=== PATIENT | female | born 1980 | race Caucasian/White ===

== ENCOUNTER 2017-01-25 10:09 | Inpatient (IN) | payer MEDICAID, OTHER ==
[2017-01-25] VITALS (75 sets, daily range): BP systolic 114–137; BP diastolic 62–77; PULSE 67–98; RESP 18; TEMP 97.8–98.5
[~2017-01-25] VITALS: Ht 162.6 cm; Wt 70.0 kg
--- NOTE | 2017-01-25 11:08 | PD ---
HPI Chief Complaint Leaking fluid Date Seen: Jan 25, 2017 Time Seen: 10:55 Travel History International Travel<30 Days: No Contact w/Intl Traveler<30Days: No Known Affected Area: No History of Present Illness HPI Patient is 36-year-old white female at 39 1/2 weeks, goes to see Dr. Sherman for care, presents complaining of leaking a large amount of fluid earlier today. She says it would fill a cup. She went to [facility]. Amnio sure was negative and Center out at that time said she was 3 cm dilated, here in OB ED her amnio sure is also negative and the nurse checked her cervix and said she was 4 and 60%. heart rate tracing is reactive she is not angélica at this time Weeks Gestation: 39 Para: 5 : 6 History Obstetric History Obstetric History 5 vaginal deliveries Social History Alcohol Use: No Tobacco Use: No Substance Abuse: No Review of Systems General / Constitutional: No: Fever, Weight Gain, Chills, Other Eyes: No: Diploplia, Blurred Vision, Visual changes, Pain, Photophobia HENT: No: Headaches, Vertigo, Lightheadedness Cardiovascular: No: Irregular Rhythm, Chest Pain or Discomfort, Palpitations, Tachycardia, Syncope, Varicosities, Edema, Cyanosis Respiratory: No: Cough, Short of Breath, Other Gastrointestinal: No: Nausea, Vomiting, Diarrhea Genitourinary: No: Decreased Urinary Output, Oliguria Musculoskeletal: No: Limited ROM, Weakness, Cramping, Edema, Pain Skin: No Rash, No Itching, No Dryness, No Lumps, No Change in Pigmentation, No Change in Nails, No Alopecia, No Lesions Neurologic: No: Weakness, Dizziness, Syncope, Focal Abnormalities, Coordination Problem, Headache, Slurred Speech, Seizures Psychiatric: No: Depression, Suicidal Ideations, Homicidal Ideation Endocrine: No: Heat Intolerance, Cold Intolerance, Polydipsia, Polyuria, Other Physical Exam Narrative GENERAL: Well-nourished, well-developed patient. SKIN: Warm and dry. HEAD: Normocephalic and atraumatic. EYES: No scleral icterus. No injection or drainage. ENT: No nasal drainage noted. Mucous membranes pink. Airway patent. NECK: Supple, trachea midline. No JVD. CARDIOVASCULAR: Regular rate and rhythm without murmurs, gallops, or rubs. RESPIRATORY: Breath sounds equal bilaterally. No accessory muscle use. BREASTS: Bilateral exam showed no masses , no retractions, no nipple discharge. ABDOMEN/GI: Abdomen soft, non-tender, bowel sounds present, no rebound, no guarding Gravid to [38-] weeks size Fundal Height: [37-] GENITOURINARY: External Genitalia: intact and normal in appearance , speculum exam was done- -the vulva is pretty wet and stained with minimal amount of blood that is likely from her cervical exam. Looking in the vagina there is no pooling that there is a moderate amount of old blood in the posterior fornix and in the vagina, and this would make repeating an amnio sure doing a fern any testing unreliable Cervix: [3-4-] Dilatation: [3-4] Effacement: [-] 50% Station: [-3] Presentation: [-vtx] Membranes: [intact ] with an amnio sure negative 2 I believe the patient is probably intact Uterine Contractions: [-no reg] FHT's: Category: [1-] Baseline: [-133] Reactive: [yes-] Variability: [-mod] Decels: [-none] EXTREMITIES: No cyanosis or edema. BACK: Nontender without obvious deformity. No CVA tenderness. NEUROLOGICAL: Awake and alert. Motor and sensory grossly within normal limits. Five out of 5 muscle strength in all muscle groups. Normal speech. Data Data Labs Amnio sure negative here on OB ED MDM Interpretation(s) Patient is 36-year-old white female at 39 weeks presents complaining of leakage of fluid, she had an amnio sure done at [facility] was negative. Repeat amnio sure done here in our OB ED is negative. However the patient gives a good story a lot of leakage of fluid at times and on exam the vulva is fairly with the vagina does appear washed out but there is a moderate amount of blood in the vagina and the on the vulva very likely just being checked cervix. Heart rate tracing is reactive and no contractions, cervix is 3-4 cm /50%/ -3. Patient sees Dr. Sherman for care and will blood call him and see if he has any guidelines would like to follow for her care Plan Discussed patient's case with Dr. Sherman and he agreed that if the patient wanted to stay and a get delivered that he was happy to do that, so plan to admit the patient his service and he will effect delivery as his schedule permits Diagnosis Diagnosis: Primary Impression: 39 weeks gestation of Additional Impressions: Vaginal discharge during in third trimester Spotting complicating in third trimester Condition: Stable Jelani Lorenzana II, MD Jan 25, 2017 11:08
[2017-01-25] MEDS ORDERED: SODIUM CHLORID 0.9% 500 ML INJ 500 ML IV PRN (11:15)
[2017-01-25] MEDS ORDERED: LIDOCAINE HCL 1% 50 ML VIAL INFIL PRN (11:15)
[2017-01-25] MEDS ORDERED: CITRIC ACID-SODIUM CITRATE LIQ 30 ML UDC PO SCH (11:15)
[2017-01-25] MEDS ORDERED: LACTATED RINGER'S 1000 ML INJ 1,000 ML IV PRN (11:15)
[2017-01-25] MEDS ORDERED: LACTATED RINGER'S 1000 ML INJ 1,000 ML IV SCH (11:15)
[2017-01-25] MEDS ORDERED: LIDOCAINE HCL 1% 50 ML VIAL I-DERMAL PRN (11:15)
[2017-01-25] MEDS ORDERED: MINERAL OIL 10 ML VIAL TOPICAL PRN (11:15)
--- NOTE | 2017-01-25 11:15 | HHI.HP ---
History & Physical H&P OB ED Note (Detail) Patient Name: Sam Uriarte Unit Number: [id number] Date of : 1980 Patient Status: Registered Emergency Room Attending Doctor: Jelani Lorenzana II, MD HPI HPI Chief Complaint Leaking fluid Date Seen: Jan 25, 2017 Time Seen: 10:55 Travel History International Travel<30 Days: No Contact w/Intl Traveler<30Days: No Known Affected Area: No History of Present Illness HPI Patient is 36-year-old white female at 39 1/2 weeks, goes to see Dr. Sherman for care, presents complaining of leaking a large amount of fluid earlier today. She says it would fill a cup. She went to [facility]. Amnio sure was negative and Center out at that time said she was 3 cm dilated, here in OB ED her amnio sure is also negative and the nurse checked her cervix and said she was 4 and 60%. heart rate tracing is reactive she is not angélica at this time Weeks Gestation: 39 Para: 5 : 6 History (Limited) History Obstetric History Obstetric History 5 vaginal deliveries Social History Alcohol Use: No Tobacco Use: No Substance Abuse: No Allergies-Medications Allergies-Medications ROS Review of Systems General / Constitutional: No: Fever, Weight Gain, Chills, Other Eyes: No: Diploplia, Blurred Vision, Visual changes, Pain, Photophobia HENT: No: Headaches, Vertigo, Lightheadedness Cardiovascular: No: Irregular Rhythm, Chest Pain or Discomfort, Palpitations, Tachycardia, Syncope, Varicosities, Edema, Cyanosis Respiratory: No: Cough, Short of Breath, Other Gastrointestinal: No: Nausea, Vomiting, Diarrhea Genitourinary: No: Decreased Urinary Output, Oliguria Musculoskeletal: No: Limited ROM, Weakness, Cramping, Edema, Pain Skin: No Rash, No Itching, No Dryness, No Lumps, No Change in Pigmentation, No Change in Nails, No Alopecia, No Lesions Neurologic: No: Weakness, Dizziness, Syncope, Focal Abnormalities, Coordination Problem, Headache, Slurred Speech, Seizures Psychiatric: No: Depression, Suicidal Ideations, Homicidal Ideation Endocrine: No: Heat Intolerance, Cold Intolerance, Polydipsia, Polyuria, Other Physical Exam Physical Exam Narrative GENERAL: Well-nourished, well-developed patient. SKIN: Warm and dry. HEAD: Normocephalic and atraumatic. EYES: No scleral icterus. No injection or drainage. ENT: No nasal drainage noted. Mucous membranes pink. Airway patent. NECK: Supple, trachea midline. No JVD. CARDIOVASCULAR: Regular rate and rhythm without murmurs, gallops, or rubs. RESPIRATORY: Breath sounds equal bilaterally. No accessory muscle use. BREASTS: Bilateral exam showed no masses , no retractions, no nipple discharge. ABDOMEN/GI: Abdomen soft, non-tender, bowel sounds present, no rebound, no guarding Gravid to [38-] weeks size Fundal Height: [37-] GENITOURINARY: External Genitalia: intact and normal in appearance , speculum exam was done- -the vulva is pretty wet and stained with minimal amount of blood that is likely from her cervical exam. Looking in the vagina there is no pooling that there is a moderate amount of old blood in the posterior fornix and in the vagina, and this would make repeating an amnio sure doing a fern any testing unreliable Cervix: [3-4-] Dilatation: [3-4] Effacement: [-] 50% Station: [-3] Presentation: [-vtx] Membranes: [intact ] with an amnio sure negative 2 I believe the patient is probably intact Uterine Contractions: [-no reg] FHT's: Category: [1-] Baseline: [-133] Reactive: [yes-] Variability: [-mod] Decels: [-none] EXTREMITIES: No cyanosis or edema. BACK: Nontender without obvious deformity. No CVA tenderness. NEUROLOGICAL: Awake and alert. Motor and sensory grossly within normal limits. Five out of 5 muscle strength in all muscle groups. Normal speech. Data Data Data Labs Amnio sure negative here on OB ED MDM MDM Interpretation(s) Patient is 36-year-old white female at 39 weeks presents complaining of leakage of fluid, she had an amnio sure done at [facility] was negative. Repeat amnio sure done here in our OB ED is negative. However the patient gives a good story a lot of leakage of fluid at times and on exam the vulva is fairly with the vagina does appear washed out but there is a moderate amount of blood in the vagina and the on the vulva very likely just being checked cervix. Heart rate tracing is reactive and no contractions, cervix is 3-4 cm /50%/ -3. Patient sees Dr. Sherman for care and will blood call him and see if he has any guidelines would like to follow for her care Plan Discussed patient's case with Dr. Sherman and he agreed that if the patient wanted to stay and a get delivered that he was happy to do that, so plan to admit the patient his service and he will effect delivery as his schedule permits Diagnosis Diagnosis: Primary Impression: 39 weeks gestation of Additional Impressions: Vaginal discharge during in third trimester Spotting complicating in third trimester Condition: Stable Jelani Lorenzana II, MD Jan 25, 2017 11:08 Jelani Lorenzana II, MD Jan 25, 2017 11:15
[2017-01-25] MEDS ORDERED: SODIUM CHLOR 0.9% 1000 ML INJ 1,000 ML IV PRN (11:35)
[2017-01-25] MEDS ORDERED: OXYTOCIN 30 UNITS-500ML PREMIX 500 ML IV ONE (12:00)
[2017-01-25 12:03] LABS: AUTOMATED NEUTROPHIL # 7.8 TH/MM3 (1.8-7.7); BASOPHIL % 0.3 % (0.0-2.0); EOSINOPHIL # 0.1 TH/MM3 (0-0.4); EOSINOPHIL % 0.5 % (0.0-4.0); HEMATOCRIT 31.5 % (35.0-46.0); HEMO FLAGS DIFF FINAL; LYMPH % 14.4 % (9.0-44.0); LYMPHOCYTE # 1.5 TH/MM3 (1.0-4.8); MEAN CELL VOLUME 77.2 FL (80.0-100.0); MEAN CORPUSCULAR HEMOGLOBIN 24.8 PG (27.0-34.0); MEAN CORPUSCULAR HGB CONC 32.1 % (32.0-36.0); NEUT % 75.8 % (16.0-70.0); PLATELET COUNT 186 TH/MM3 (150-450); RED BLOOD COUNT 4.07 MIL/MM3 (4.00-5.30); RED CELL DISTRIBUTION WIDTH 15.9 % (11.6-17.2); WHITE BLOOD COUNT 10.4 TH/MM3 (4.0-11.0)
[2017-01-25 12:06] LABS: BLOOD, URINE TRACE (NEG); COMMENT (UR) CULT NOT INDICATED; CULTURE IF INDICATED CULT NOT INDICATED; GLUCOSE,URINE NEG (NEG); KETONE, URINE NEG (NEG); NITRITE,URINE NEG (NEG); SQUAMOUS EPITHELIAL CELL URINE <1 /hpf (0-5); URINE COLOR LIGHT-YELLOW (YELLW/STRAW)
--- NOTE | 2017-01-25 13:27 | PD.LABORPN ---
Subjective Subjective doing well some contractions but comfortable Objective Vital Signs Vital Signs Date Time Temp Pulse Resp B/P (MAP) Pulse Ox O2 Delivery O2 Flow Rate FiO2 01/25/17 12:50 75 01/25/17 12:45 81 01/25/17 12:40 82 01/25/17 12:35 76 01/25/17 12:30 76 01/25/17 12:24 72 114/72 (86) 01/25/17 12:23 18 01/25/17 12:20 76 01/25/17 12:15 79 01/25/17 12:10 81 01/25/17 12:05 79 01/25/17 12:00 77 01/25/17 11:55 76 01/25/17 11:50 77 01/25/17 11:45 80 01/25/17 11:40 79 01/25/17 11:35 78 01/25/17 11:30 98.5 01/25/17 11:30 79 01/25/17 11:25 80 01/25/17 11:22 79 128/74 (92) 01/25/17 11:21 18 Objective Pelvic Exam: Cervix: [-] Dilatation: 4 Effacement: 90 Station: [-] Presentation: vtx Membranes: AROM Uterine Contractions: infrequent FHT's: Category: 1 Baseline: [-] Reactive: [-] Variability: [-] Decels: [-] Weeks Gestation: 39 Gest Age Assessed Date: Jan 25, 2017 Gest Age Assessed Time: 12:00 Pt started active labor?: Yes Active labor start date: Jan 25, 2017 Active labor start time: 09:00 Medical induction of labor?: No Artificial rupture of membrane: Yes Artificial ROM date: Jan 25, 2017 Artifical ROM time: 13:15 Assessment/Plan Problem List: (1) 39 weeks gestation of ICD Codes: Z3A.39 - 39 weeks gestation of Status: Acute (2) Grand multipara in labor ICD Codes: O09.40 - Supervision of with grand multiparity, unspecified trimester Carmine Hudson MD Jan 25, 2017 13:27
[2017-01-25] MEDS ORDERED: OXYTOCIN 30 UNITS-500ML PREMIX 500 ML IV SCH ×2 (13:30→17:30)
[2017-01-25] MEDS ORDERED: OXYTOCIN 30 UNITS/NS 500ML PREMIX IV SCH (14:00)
[2017-01-25] MEDS ORDERED: MEASLES, MUMPS, RUBELLA VACCINE 0.5 ML VIAL SQ ONE (16:00)
[2017-01-25] MEDS ORDERED: DIPHTH/TETANUS/ACEL PERTUSSIS (BOOSTER) 0.5 ML VIAL/PFS IM ONE (16:00)
--- NOTE | 2017-01-25 17:28 | PD.OB.DELI ---
Weeks gestation: 39 Gest age assessed date: Jan 25, 2017 Gest age assessed time: 12:00 Pt started active labor?: Yes Active labor start date: Jan 25, 2017 Active labor start time: 09:00 Medical induction of labor?: No Artificial rupture of membrane: Yes Artificial ROM date: Jan 25, 2017 Artifical ROM time: 13:15 Anesthesia: None Episiotomy: None Vaginal Delivery: Normal, Spontaneous Presentation: Occiput anterior Nuchal Cord: x1 Delayed cord clamping (45 sec): Yes Infant: Female, Single Delivery date: Jan 25, 2017 Delivery time: 16:44 One Minute : 8 Five Minute : 9 Weight: 7# 4oz Placenta: Manual removal, Not Intact, 3 vessel cord, Other (banjo curette x2) Laceration: No lacerations Estimated blood loss: 300 Additional Information manual extraction of retained membrane, placenta removed intact but 60% of membrane 5 total manual retrievals but 2x with curette Carmine Hudson MD Jan 25, 2017 17:28
[2017-01-25] MEDS ORDERED: WITCH HAZEL 50%/GLYCERIN 12.5% 40 PAD JAR TOPICAL PRN (17:30)
[2017-01-25] MEDS ORDERED: ACETAMINOPHEN 325 MG TAB PO PRN (17:30)
[2017-01-25] MEDS ORDERED: ZOLPIDEM TARTRATE 5 MG TAB PO PRN (17:30)
[2017-01-25] MEDS ORDERED: BENZOCAINE 20% TOPICAL SPRAY 60 ML CAN TOPICAL PRN (17:30)
[2017-01-25] MEDS ORDERED: ALUMINUM/MAGNESIUM/SIMETH 30 ML CUP PO PRN (17:30)
[2017-01-25] MEDS ORDERED: DOCUSATE SODIUM 50 MG/SENNA 8.6 MG TAB PO PRN (17:30)
[2017-01-25] MEDS ORDERED: oxyCODONE/ACETAMINOPHEN 5 MG/325 MG TAB PO PRN ×2 (17:30)
[2017-01-25] MEDS ORDERED: SODIUM CHLORIDE 0.9% FLUSH 10 ML FLUSH IV FLUSH PRN (17:30)
[2017-01-25] MEDS ORDERED: ONDANSETRON ODT 4 MG TAB PO PRN (17:30)
[2017-01-25] MEDS ORDERED: ceFAZolin 2 GM PREMIX 50 ML IV ONE (18:00)
[2017-01-25] MEDS: IBUPROFEN 600 MG TAB PO PRN (18:24)
[2017-01-25] MEDS ORDERED: SODIUM CHLORIDE 0.9% FLUSH 10 ML FLUSH IV FLUSH SCH (21:00)
[2017-01-26] MEDS: IBUPROFEN 600 MG TAB PO PRN (01:59)
--- NOTE | 2017-01-26 07:32 | HHI.OB ---
Subjective Post Day: 1 Remarks doing well ok to dc home today Objective Vitals/I&O Vital Signs Date Time Temp Pulse Resp B/P (MAP) Pulse Ox O2 Delivery O2 Flow Rate FiO2 01/25/17 19:35 98.5 01/25/17 19:35 86 18 122/69 (86) 01/25/17 18:16 81 121/62 (81) 01/25/17 18:15 18 01/25/17 17:50 18 01/25/17 17:35 97.8 01/25/17 17:35 84 121/73 (89) 01/25/17 17:35 18 01/25/17 17:16 18 01/25/17 16:40 78 01/25/17 16:35 93 01/25/17 16:30 84 01/25/17 16:25 77 01/25/17 16:20 88 01/25/17 16:15 98 01/25/17 16:10 83 01/25/17 16:05 84 01/25/17 16:00 89 01/25/17 15:55 87 01/25/17 15:50 97 01/25/17 15:45 89 01/25/17 15:39 70 137/77 (97) 01/25/17 15:38 18 01/25/17 15:37 98.5 01/25/17 15:35 73 01/25/17 15:30 70 01/25/17 15:25 83 01/25/17 15:20 80 01/25/17 15:15 76 01/25/17 15:05 76 01/25/17 15:00 80 01/25/17 14:55 75 01/25/17 14:50 81 01/25/17 14:45 84 01/25/17 14:40 67 01/25/17 14:39 93 132/74 (93) 01/25/17 14:38 18 01/25/17 14:30 78 01/25/17 14:25 86 01/25/17 14:20 84 01/25/17 14:15 79 01/25/17 14:10 88 01/25/17 14:05 78 01/25/17 14:00 79 01/25/17 13:55 80 01/25/17 13:50 78 01/25/17 13:45 83 01/25/17 13:42 98.3 01/25/17 13:42 18 01/25/17 13:42 83 117/63 (81) 01/25/17 13:40 86 01/25/17 13:35 82 01/25/17 13:30 80 01/25/17 13:25 89 01/25/17 13:20 89 01/25/17 13:10 81 01/25/17 13:05 74 01/25/17 13:00 73 01/25/17 12:55 76 01/25/17 12:50 75 01/25/17 12:45 81 01/25/17 12:40 82 01/25/17 12:35 76 01/25/17 12:30 76 01/25/17 12:24 72 114/72 (86) 01/25/17 12:23 18 01/25/17 12:20 76 01/25/17 12:15 79 01/25/17 12:10 81 01/25/17 12:05 79 01/25/17 12:00 77 01/25/17 11:55 76 01/25/17 11:50 77 01/25/17 11:45 80 01/25/17 11:40 79 01/25/17 11:35 78 01/25/17 11:30 98.5 01/25/17 11:30 79 01/25/17 11:25 80 01/25/17 11:22 79 128/74 (92) 01/25/17 11:21 18 Objective Remarks GENERAL: Well-nourished, well-developed patient. ABDOMEN/GI: Abdomen soft, non-tender. Fundus: Firm, non-tender at umbilicus. GENITOURINARY: Light to moderate bleeding. EXTREMITIES: No cyanosis or edema, non-tender, without signs of DVT. Medications and IVs Current Medications Medications (Trade) Dose Ordered Sig/Rika Route Start Time Stop Time Status Last Admin Lactated Ringer's 1,000 ml @ 125 mls/hr Q8H IV 01/25/17 11:15 01/25/17 11:32 Lactated Ringer's 1,000 ml @ 3,000 mls/hr Q20M PRN IV 01/25/17 11:15 Sodium Chloride 1,000 ml @ 100 mls/hr Q10H PRN IV 01/25/17 11:35 (Xylocaine 1% Inj (50 ml)) 0.1 ml UNSCH X1 PRN I-DERMAL 01/25/17 11:15 01/28/17 11:14 (Bicitra Liq) 30 ml CHRONIC CONDITION NURSE PO 01/25/17 11:15 01/29/17 11:14 (fentaNYL INJ) 50 mcg Q1H PRN IV PUSH 01/25/17 11:15 (fentaNYL INJ) 100 mcg Q1H PRN IV PUSH 01/25/17 11:15 (Xylocaine 1% Inj (50 ml)) 10 ml UNSCH X1 PRN INFIL 01/25/17 11:15 01/27/17 11:14 (Muri-Lube Oil) 10 ml UNSCH PRN TOPICAL 01/25/17 11:15 Oxytocin 500 ml @ 0 mls/hr TITRATE IV 01/25/17 14:00 Oxytocin 500 ml @ 0 mls/hr TITRATE IV 01/25/17 13:30 (NS Flush) 2 ml BID IV FLUSH 01/25/17 21:00 (NS Flush) 2 ml UNSCH PRN IV FLUSH 01/25/17 17:30 (Tylenol) 650 mg Q4H PRN PO 01/25/17 17:30 (Motrin) 600 mg Q6H PRN PO 01/25/17 17:30 01/26/17 01:59 (Percocet 5-325 Mg) 1 tab Q4H PRN PO 01/25/17 17:30 (Percocet 5-325 Mg) 2 tab Q4H PRN PO 01/25/17 17:30 (Americaine 20% Top Spr) 1 spray Q4H PRN TOPICAL 01/25/17 17:30 01/25/17 20:35 (Tucks Pads) 1 applic QID PRN TOPICAL 01/25/17 17:30 01/25/17 20:35 (Rhonda-Colace) 2 tab Q12H PRN PO 01/25/17 17:30 (Ambien) 5 mg HS PRN PO 01/25/17 17:30 (Mag-Al Plus Susp Liq) 15 ml Q8H PRN PO 01/25/17 17:30 (Zofran Odt) 4 mg Q6H PRN PO 01/25/17 17:30 Assessment/Plan Problem List: (1) 39 weeks gestation of ICD Codes: Z3A.39 - 39 weeks gestation of Status: Acute (2) Grand multipara in labor ICD Codes: O09.40 - Supervision of with grand multiparity, unspecified trimester (3) Spontaneous vaginal delivery ICD Codes: O80 - Encounter for full-term uncomplicated delivery Discharge Planning dc home today Carmine Hudson MD Jan 26, 2017 07:32
[2017-01-26] MEDS ORDERED: OXYC1TAB63 PO (07:35)
--- NOTE | 2017-01-26 07:36 | HHI.DCPOC ---
Discharge Care Plan Diagnosis: (1) Spontaneous vaginal delivery Report Symptoms to Your Doctor -Temperature above 100.5 degrees -Redness, of incision or excessive or foul smelling drainage -Unusual pain or calf pain -Increased vaginal bleeding -Painful or difficulty urinating -Feelings of extreme sadness or anxiety after 2 weeks Goals to Promote Your Health * To prevent worsening of your condition and complications * To maintain your health at the optimal level Directions to Meet Your Goals Take your medications as prescribed Follow your dietary instruction Follow activity as directed Ensure plenty of rest for recovery Drink fluids for hydration Keep your appointments as scheduled Take your immunizations and boosters as scheduled If your symptoms worsen call your PCP, if no PCP go to Urgent Care Center or Emergency Room Smoking is Dangerous to Your Health. Avoid second hand smoke Call the 24-hour crisis hotline for domestic abuse at Carmine Hudson MD Jan 26, 2017 07:36
--- NOTE | 2017-01-26 07:38 | HHI.DS ---
Admission Date Jan 25, 2017 at 11:13 Discharge Date: Jan 26, 2017 Admitting Diagnosis Diagnosis: Delivery Date: Jan 25, 2017 Vaginal Delivery: Normal, Spontaneous Infant: Female, Single Brief History Patient is 36-year-old white female at 39 1/2 weeks, goes to see Dr. Sherman for care, presents complaining of leaking a large amount of fluid earlier today. She says it would fill a cup. She went to [facility]. Amnio sure was negative and Center out at that time said she was 3 cm dilated, here in OB ED her amnio sure is also negative and the nurse checked her cervix and said she was 4 and 60%. heart rate tracing is reactive she is not angélica at this time Hospital Course doing well dc home Pt Condition on Discharge: Good Discharge Disposition: Discharge Home Discharge Instructions Diet Instructions: As Tolerated, No Restrictions Activities You Can Perform: Pelvic Rest Activities to Avoid: Driving for 24 hrs Follow up Referrals: [employer] - 2 Weeks @ [facility] with Carmine Hudson MD PCP Follow-up New Medications: Oxycodone-Acetaminophen (Oxycodone-Acetaminophen) 5-325 mg Tab 2 TAB PO Q4H PRN for PAIN SCALE 6 TO 10 for 7 Days, #20 TAB 0 Refills Continued Medications: [none] () Carmine Hudson MD Jan 26, 2017 07:38
[2017-01-26 08:35] VITALS: BP 115/64; PULSE 74; RESP 16; TEMP 98.1; O2SAT 98
== END 2017-01-26 20:26 | disposition home or self-care (01) | DRG 767 ==
LOC: HOBED 10:09 → H2EA 11:13 → H1EA 18:34
PROVIDERS: ADMIT Obstetrics & Gynecology; ATTEND Obstetrics & Gynecology
PROC: 10E0XZZ Delivery of Products of Conception, External Approach (ICD-10-PCS; principal; 2017-01-25)
PROC: 10D17ZZ Extraction of Products of Conception, Retained, Via Natural or Artificial Opening (ICD-10-PCS; 2017-01-25)
PROC: 10907ZC Drainage of Amniotic Fluid, Therapeutic from Products of Conception, Via Natural or Artificial Opening (ICD-10-PCS; 2017-01-25)
DX: O73.0 Retained placenta without hemorrhage (principal); O09.43 Supervision of pregnancy with grand multiparity, third trimester; Z37.0 Single live birth; Z3A.39 39 weeks gestation of pregnancy
CPT/HCPCS: 59025; 81001; 84112; 85025; 86900; 86901; J0690; J2590; J7120